=== PATIENT | female | born 1965 | race Caucasian/White ===

== ENCOUNTER 2022-06-06 11:04 | Outpatient (CLI) | payer OTHER, SELFPAY ==
[2022-06-08 21:23] LABS: Calprotectin, Fecal 25 ug/g (<=49)
== END 2022-06-06 11:05 | disposition home or self-care (01) ==
LOC: NPINS 11:10
PROVIDERS: PCP Internal Medicine; Visit Provider Internal Medicine
DX: K52.9 Noninfective gastroenteritis and colitis, unspecified (principal)
CPT/HCPCS: 83993

== ENCOUNTER 2022-11-22 14:02 | Outpatient (CLI) | payer OTHER, SELFPAY ==
[2022-11-22 15:18] LABS: Cholesterol* 239 mg/dL (90-199)
[2022-11-22 15:19] LABS: Glucose* 104 mg/dL (60-115); HDL Cholesterol* 84 mg/dL (>=50); LDL Cholesterol Calculated 139 mg/dL (<100); Triglycerides* 79 mg/dL (40-149)
[2022-11-22 15:35] LABS: Vitamin D 25 Hydroxy* 44 ng/mL (30-80)
== END 2022-11-22 14:03 | disposition home or self-care (01) ==
PROVIDERS: PCP Internal Medicine; Visit Provider Internal Medicine
DX: M85.80 Other specified disorders of bone density and structure, unspecified site (principal); E78.5 Hyperlipidemia, unspecified; Z13.1 Encounter for screening for diabetes mellitus
CPT/HCPCS: 80061; 82306; 82947

== ENCOUNTER 2023-01-15 13:00 | Outpatient (CLI) | payer OTHER, SELFPAY ==
--- NOTE | 2023-01-15 13:00 | CRLHL7_ITS ---
For Patients: As a result of the Cures Act, medical imaging exams and procedure reports are released immediately into your electronic medical record. You may view this report before your referring provider. If you have questions, please contact your health care provider. BILATERAL SCREENING MAMMOGRAM WITH COMPUTER-AIDED DETECTION AND TOMOSYNTHESIS TECHNIQUE: CC and MLO views were obtained. These mammographic images have been obtained using full-field digital technique. These mammographic images were interpreted with the benefit of computer-aided detection. Breast Tomosynthesis was used in this interpretation. COMPARISON FILM: 12/31/21, 11/08/20, 09/01/19. FINDINGS: The breasts are heterogeneously dense, which may obscure small masses IMPRESSION: There is no radiographic evidence for malignancy. ASSESSMENT: BI-RADS Category 1: Negative RECOMMENDATION: Routine screening mammogram in 1 year. A lay language report of this examination will be provided to the patient. Dominga Hendrix M.D. Diagnostic/Breast Radiologist [email or web address] Transcribed: 1:15 p.oh jon/Dictated by: Dominga Hendrix MD @ 01/17/2023 8:23:00 AM (Electronically Signed)
== END 2023-01-15 13:01 | disposition home or self-care (01) ==
LOC: MAMMO 01-22 11:45
PROVIDERS: PCP Internal Medicine; Visit Provider Internal Medicine
DX: Z12.31 Encounter for screening mammogram for malignant neoplasm of breast (principal); R92.2 Inconclusive mammogram
CPT/HCPCS: 77063; 77067

== ENCOUNTER 2024-02-03 13:27 | Outpatient (CLI) | payer OTHER, SELFPAY ==
--- NOTE | 2024-02-03 13:40 | MM_ITS ---
Patient: [facility] Facility:?[facility] Patient ID:?[id number] Site Patient ID:?[id number]. Site :?[id number] Study:?XRay-Breast Bilateral 3D W/CAD-02/03/2024 1:54:56 PM Ordering Physician:Deb Final Report: BILATERAL SCREENING MAMMOGRAM WITH COMPUTER-AIDED DETECTION AND TOMOSYNTHESIS TECHNIQUE: CC and MLO views were obtained. These mammographic images have been obtained using full-field digital technique. These mammographic images were interpreted with the benefit of computer-aided detection. Breast Tomosynthesis was used in this interpretation. COMPARISON FILM: 01/15/23, 12/31/21, 11/08/20. FINDINGS: The breasts are heterogeneously dense, which may obscure small masses. IMPRESSION: There is no radiographic evidence for malignancy. ASSESSMENT: BI-RADS Category 1: Negative RECOMMENDATION: Routine screening mammogram in 1 year. A lay language report of this examination will be provided to the patient. Sameer Dickerson M.D. Diagnostic Radiologist [email or web address] DSM/sp R& Transcribed: 4:18 p.m. SP/Dictated by: Sameer Dickerson MD @ 02/04/2024 10:55:00 AM Signed by:?Sameer Dickerson MD @02/04/2024 4:21:20 PM (Electronic Signature)
== END 2024-02-03 13:28 | disposition home or self-care (01) ==
LOC: MAMMO 13:28
PROVIDERS: PCP Internal Medicine; Visit Provider Internal Medicine
DX: Z12.31 Encounter for screening mammogram for malignant neoplasm of breast (principal); R92.2 Inconclusive mammogram
CPT/HCPCS: 77063; 77067